=== PATIENT | female | born 1945 | race American Indian/Alaskan Native ===

== ENCOUNTER 2017-04-20 11:24 | Emergency (ER) | payer MEDICARE ==
[2017-04-20 12:46] LABS: Basophils % (Auto) 0.7 % (0.0-1.8); Eosinophils % (Auto) 3.6 % (0.0-4.3); Hematocrit 36.8 % (30.3-42.9); Hemoglobin 12.1 gm/dl (10.1-14.3); Mean Corpuscular HGB Conc 33 % (30-34); Mean Corpuscular Hemoglobin 30 pg (28-32); Mean Corpuscular Volume 90 fl (79-97); Platelet Count 257 K/mm3 (140-440); Red Blood Count 4.07 M/mm3 (3.65-5.03); Red Cell Distribution Width 14.9 % (13.2-15.2); White Blood Count 8.1 K/mm3 (4.5-11.0)
[2017-04-20 12:57] LABS: Anion Gap 15 mmol/L; BUN/Creatinine Ratio 15; Blood Urea Nitrogen 15 mg/dL (7-17); Calcium 8.7 mg/dL (8.4-10.2); Carbon Dioxide 25 mmol/L (22-30); Chloride 106.8 mmol/L (98-107); Glucose 87 mg/dL (65-100); Potassium 4.1 mmol/L (3.6-5.0); Sodium 143 mmol/L (137-145)
--- NOTE | 2017-04-20 13:41 | Emergency Department Report ---
ED General Adult HPI - General Chief complaint: Extremity Injury, Lower Stated complaint: POSSIBLE INFECTION Time Seen by Provider: 04/20/17 13:38 Source: patient Mode of arrival: Ambulatory Limitations: No Limitations - History of Present Illness Initial comments: Patient complains of generalized weakness. She denies dysuria but states that she has had this urinary frequency. This seems to be somewhat chronic. She denies fever or chills. She denies any respiratory symptoms or GI change. Does not have any other acute symptoms. She denies any sore pain whatsoever. -: Gradual Radiation: non-radiation Consistency: intermittent (weakness) Improves with: none Worsens with: none Associated Symptoms: denies other symptoms - Related Data Allergies Allergy/AdvReac Type Severity Reaction Status Date / Time Sulfa (Sulfonamide AdvReac Unknown Verified 04/20/17 12:00 Antibiotics) ED Review of Systems ROS: Stated complaint: POSSIBLE INFECTION Other details as noted in HPI Constitutional: weakness. denies: chills, fever Eyes: denies: eye pain, eye discharge, vision change ENT: denies: ear pain, throat pain Respiratory: denies: cough, shortness of breath, wheezing Cardiovascular: denies: chest pain, palpitations Endocrine: no symptoms reported Gastrointestinal: denies: abdominal pain, nausea, diarrhea Genitourinary: denies: urgency, dysuria, discharge Musculoskeletal: denies: back pain, joint swelling, arthralgia Skin: denies: rash, lesions Neurological: denies: headache, weakness, paresthesias Psychiatric: denies: anxiety, depression Hematological/Lymphatic: denies: easy bleeding, easy bruising ED Past Medical Hx - Past Medical History Previous Medical History?: Yes Hx Hypertension: Yes Hx CVA: Yes Hx Asthma: Yes - Surgical History Past Surgical History?: Yes Hx Cholecystectomy: Yes Additional Surgical History: hernia, hysterctomy - Social History Smoking Status: Never Smoker Substance Use Type: None ED Physical Exam - General Limitations: No Limitations General appearance: alert, in no apparent distress - Head Head exam: Present: atraumatic, normocephalic - Eye Eye exam: Present: normal appearance, PERRL, EOMI. Absent: scleral icterus - ENT ENT exam: Present: normal exam, mucous membranes moist - Neck Neck exam: Present: normal inspection. Absent: tenderness, meningismus - Respiratory Respiratory exam: Present: normal lung sounds bilaterally. Absent: respiratory distress - Cardiovascular Cardiovascular Exam: Present: normal rhythm, bradycardia. Absent: systolic murmur, diastolic murmur, rubs, gallop - GI/Abdominal GI/Abdominal exam: Present: soft, normal bowel sounds. Absent: distended, tenderness, guarding, rebound, rigid - Extremities Exam Extremities exam: Present: normal inspection - Back Exam Back exam: Present: normal inspection - Neurological Exam Neurological exam: Present: alert, oriented X3, CN II-XII intact. Absent: motor sensory deficit - Psychiatric Psychiatric exam: Present: normal affect, normal mood - Skin Skin exam: Present: warm, dry, intact, normal color. Absent: rash ED Course Vital Signs 04/20/17 11:52 Temperature 98.6 F Pulse Rate 61 Respiratory 16 Rate Blood Pressure 151/76 O2 Sat by Pulse 96 Oximetry - Reevaluation(s) Reevaluation #1: 04/20/17 16:01 Patient is clinically quite stable. I don't think she requires any further medical screening at this time. I'll refer her to her primary care doctor for further workup perhaps thyroid tests etc. She is discharged in stable condition. ED Medical Decision Making - Lab Data Result diagrams: 04/20/17 12:14 04/20/17 12:14 Laboratory Results - last 24 hr 04/20/17 04/20/17 12:14 12:14 WBC 8.1 RBC 4.07 Hgb 12.1 Hct 36.8 MCV 90 MCH 30 MCHC 33 RDW 14.9 Plt Count 257 Lymph % (Auto) 22.4 [place] % (Auto) 9.3 H Eos % (Auto) 3.6 Baso % (Auto) 0.7 Lymph # 1.8 [place] # 0.8 Eos # 0.3 Baso # 0.1 Seg Neutrophils % 64.0 Seg Neutrophils # 5.2 Sodium 143 Potassium 4.1 Chloride 106.8 Carbon Dioxide 25 Anion Gap 15 BUN 15 Creatinine 1.0 Estimated GFR > 60 BUN/Creatinine Ratio 15 Glucose 87 Calcium 8.7 Critical care attestation.: If time is entered above; I have spent that time in minutes in the direct care of this critically ill patient, excluding procedure time. ED Disposition Clinical Impression: Weakness, Sinus bradycardia Disposition: - TO HOME OR SELFCARE Is pt being admited?: No Does the pt Need Aspirin: No Condition: Stable Additional Instructions: Follow-up primary care physician. Perhaps he may want to send thyroid tests. Follow-up with your regular customer specialist. Return any acute change or worsening symptoms. Referrals: PRIMARY CARE,MD [Primary Care Provider] - 2-3 Days usual, customer specialist [Other] - 3-5 Days Time of Disposition: 16:02
[2017-04-20 14:56] LABS: Bilirubin,Urine NEG (Negative); Blood,Urine NEG (Negative); Ketones,Urine NEG (Negative); Leukocyte Esterase,Urine NEG (Negative); Mucus,Urine FEW /HPF; Nitrite,Urine NEG (Negative); Protein,Urine <15 mg/dL mg/dL (Negative)
[2017-04-20 16:22] VITALS: BP 169/71
== END 2017-04-20 16:21 | disposition home or self-care (01) ==
LOC: ED 11:24
DX: R53.1 Weakness (principal); R00.1 Bradycardia, unspecified; Z86.73 Personal history of transient ischemic attack (TIA), and cerebral infarction without residual deficits; I10 Essential (primary) hypertension; J45.909 Unspecified asthma, uncomplicated; Z88.2 Allergy status to sulfonamides
CPT/HCPCS: 36415; 80048; 81001; 85025; 93005; 93010

== ENCOUNTER 2018-05-04 15:12 | Outpatient (CLI) | payer MEDICARE ==
--- NOTE | 2018-05-05 10:51 | Mammography Report ---
BILATERAL DIGITAL SCREENING MAMMOGRAM with CAD: 05/04/18 15:12:00 CLINICAL: Routine screening.No previous mammogram. FINDINGS: The breasts are almost entirely fatty.Bilateral surgical clips. A small right retroareolar oil cyst with calcifications. Benign fat necrosis of the left breast with multiple calcified oil cysts and retraction of the left nipple by surgical scar. No mass, suspicious architectural distortion or suspicious calcifications. IMPRESSION: No mammographic evidence of malignancy. BI-RADS CATEGORY: 2 -- Benign RECOMMENDATION: Routine mammographic screening in one year. COMMENT: Patient follow-up letters are generated by our [employer] application.
== END 2018-05-04 15:13 | disposition home or self-care (01) ==
LOC: SPVWC 15:12
PROVIDERS: ATTEND Family Medicine
DX: Z12.31 Encounter for screening mammogram for malignant neoplasm of breast (principal); I10 Essential (primary) hypertension; J45.909 Unspecified asthma, uncomplicated; Z90.49 Acquired absence of other specified parts of digestive tract; Z90.710 Acquired absence of both cervix and uterus
CPT/HCPCS: 77067

== ENCOUNTER 2019-08-14 10:31 | Emergency (ER) | payer MEDICARE ==
[2019-08-14] MEDS ORDERED: LISINOPRIL 10 MG TAB PO ONE (11:19)
[2019-08-14] MEDS ORDERED: amLODIPine 5 MG TAB PO ONE (11:19)
--- NOTE | 2019-08-14 11:24 | Emergency Department Report ---
Chief Complaint: Arrhythmia/Palpitations Stated Complaint: HEART RACING Time Seen by Provider: 08/14/19 11:17 - HPI History of Present Illness: 74 female htn depressiob intermittent palp, heavy breathing x 1 month. no cp now more frequent and reoccured this am while at rest intemittient hand tremors/shaking last several days takes lotrel, lexapro but did not take meds this am due to symptoms returned form [place] 5 days ago ekg nsr 78 - Exam Vital Signs: Vital Signs 08/14/19 10:32 Temperature 99.0 F Pulse Rate 89 Respiratory 20 Rate Blood Pressure 200/107 O2 Sat by Pulse 97 Oximetry Physical Exam: ctab rrr no calf tenderness, swelling MSE screening note: Focused history and physical exam performed. Due to findings the following was ordered: labs her home bp med equivalent provided cxr ekg ED Disposition for MSE Condition: Stable
--- NOTE | 2019-08-14 12:22 | XRay Report ---
Chest 2 views INDICATION: Chest pain IMPRESSION: Low lung volumes. Heart size is borderline enlarged. The lungs are clear. Signer Name: Sami Long MD Signed: 08/14/2019 12:17 PM Workstation Name: [id number]
--- NOTE | 2019-08-14 12:41 | Emergency Department Report ---
HPI - General Chief Complaint: Arrhythmia/Palpitations Time Seen by Provider: 08/14/19 11:17 - HPI HPI: Room 5 The patient is a 74-year-old female presenting with a chief complaint of palpitations and increased work of breathing. Patient states for one week she's noticed her heart rate has increased intermittently. Patient states family members noticed that she's had increased work of breathing intermittently as well for one week but the patient herself did not notice it until this morning. The patient states this morning when she awakened she had an elevated heart rate and increased work of breathing. Patient states she's felt occasional shortness of breath for one week intermittently but denies chest pain nausea or vomiting. The patient states she flew to [place] 1 week ago returned 5 days ago. The patient states she felt as though her heart was racing at the time her EKG was performed today (normal sinus rhythm at 78 bpm). Location: [See above] Duration: [See above] Quality: [See above] Severity: [See above] Timing: [See above] Context: [See above] Modifying factors: [See above] Associated signs and symptoms: [see above] ED Past Medical Hx - Past Medical History Previous Medical History?: Yes Hx Hypertension: Yes Hx CVA: Yes Hx Asthma: Yes - Surgical History Past Surgical History?: Yes Hx Cholecystectomy: Yes Additional Surgical History: hernia, hysterctomy - Family History Family history: no significant - Social History Smoking Status: Never Smoker Substance Use Type: Prescribed - Medications Home Medications: Home Medications Medication Instructions Recorded Confirmed Last Taken Type Clindamycin [Clindamycin CAP] 150 mg PO Q8HR #20 capsule 04/20/17 Unknown Rx atenoloL [Tenormin] 25 mg PO DAILY #30 tab 04/20/17 Unknown Rx traMADoL [Ultram] 50 mg PO Q6HR PRN #10 tablet 04/20/17 Unknown Rx hydrOXYzine PAMOATE [Vistaril] 25 mg PO Q6HR PRN #10 capsule 08/14/19 Unknown Rx ED Review of Systems ROS: Stated complaint: HEART RACING Other details as noted in HPI Constitutional: denies: diaphoresis Eyes: denies: eye pain ENT: denies: throat pain Respiratory: shortness of breath Cardiovascular: palpitations. denies: chest pain Endocrine: no symptoms reported Gastrointestinal: denies: abdominal pain Genitourinary: denies: dysuria Musculoskeletal: denies: back pain Neurological: denies: headache Physical Exam - Physical Exam Vital Signs: Vital Signs 08/14/19 08/14/19 08/14/19 10:32 11:40 12:00 Temperature 99.0 F Pulse Rate 89 89 Respiratory 20 Rate Blood Pressure 200/107 200/107 O2 Sat by Pulse 97 98 Oximetry 08/14/19 08/14/19 12:10 12:15 Temperature Pulse Rate 87 67 Respiratory 9 L Rate Blood Pressure 188/86 O2 Sat by Pulse 99 Oximetry Physical Exam: GENERAL: The patient is well-developed well-nourished female lying on stretcher not appearing to be in acute distress. [] HEENT: Normocephalic. Atraumatic. Extraocular motions are intact. Patient has moist mucous membranes. NECK: Supple. Trachea midline CHEST/LUNGS: Clear to auscultation. There is no respiratory distress noted. HEART/CARDIOVASCULAR: Regular. There is no tachycardia. There is no gallop rub or murmur. ABDOMEN: Abdomen is soft, nontender. Patient has normal bowel sounds. There is no abdominal distention. SKIN: There is no rash. There is no edema. There is no diaphoresis. NEURO: The patient is awake, alert, and oriented. The patient is cooperative. The patient has no focal neurologic deficits. The patient has normal speech. Cranial nerves II through XII grossly intact, motor MUSCULOSKELETAL: There is no evidence of acute injury. ED Course Vital Signs 08/14/19 08/14/19 08/14/19 10:32 11:40 12:00 Temperature 99.0 F Pulse Rate 89 89 Respiratory 20 Rate Blood Pressure 200/107 200/107 O2 Sat by Pulse 97 98 Oximetry 08/14/19 08/14/19 12:10 12:15 Temperature Pulse Rate 87 67 Respiratory 9 L Rate Blood Pressure 188/86 O2 Sat by Pulse 99 Oximetry ED Medical Decision Making - Lab Data Result diagrams: 08/14/19 12:25 08/14/19 12:25 Laboratory Tests 08/14/19 08/14/19 08/14/19 12:25 12:25 12:25 WBC 10.4 RBC 4.22 Hgb 12.1 Hct 37.3 MCV 89 MCH 29 MCHC 33 RDW 15.9 H Plt Count 303 Lymph % (Auto) 16.7 [place] % (Auto) 7.4 H Eos % (Auto) 3.0 Baso % (Auto) 1.2 Lymph # 1.7 [place] # 0.8 Eos # 0.3 Baso # 0.1 Seg Neutrophils % 71.7 H Seg Neutrophils # 7.4 D-Dimer 662.15 H Sodium 138 Potassium 3.7 Chloride 102.7 Carbon Dioxide 21 L Anion Gap 18 BUN 11 Creatinine 0.8 Estimated GFR > 60 BUN/Creatinine Ratio 14 Glucose 92 Calcium 8.9 Magnesium Troponin T < 0.010 TSH Free T4 Urine Opiates Screen Urine Methadone Screen Ur Barbiturates Screen Ur Phencyclidine Scrn Ur Amphetamines Screen U Benzodiazepines Scrn Urine Cocaine Screen U Marijuana (THC) Screen Drugs of Abuse Note 08/14/19 08/14/19 08/14/19 12:25 12:25 12:32 WBC RBC Hgb Hct MCV MCH MCHC RDW Plt Count Lymph % (Auto) [place] % (Auto) Eos % (Auto) Baso % (Auto) Lymph # [place] # Eos # Baso # Seg Neutrophils % Seg Neutrophils # D-Dimer Sodium Potassium Chloride Carbon Dioxide Anion Gap BUN Creatinine Estimated GFR BUN/Creatinine Ratio Glucose Calcium Magnesium 2.30 Troponin T TSH 3.510 Free T4 1.10 Urine Opiates Screen Presumptive negative Urine Methadone Screen Presumptive negative Ur Barbiturates Screen Presumptive negative Ur Phencyclidine Scrn Presumptive negative Ur Amphetamines Screen Presumptive negative U Benzodiazepines Scrn Presumptive negative Urine Cocaine Screen Presumptive negative U Marijuana (THC) Screen Presumptive negative Drugs of Abuse Note Disclamer - Radiology Data Radiology results: report reviewed (CT chest), image reviewed (CT chest) [facility] [address] [place] [address] Cat Scan Report Signed Patient: CHICA CABRERA MR#: [id number] : 1945 Acct:[id number] Age/Sex: 74 / F ADM Date: 08/14/19 Loc: ED Attending Dr: Ordering Physician: APRIL MURRAY MD Date of Service: 08/14/19 Procedure(s): CT angio chest Accession Number(s): [id number] cc: APRIL MURRAY MD CTA CHEST WITH IV CONTRAST INDICATION / CLINICAL INFORMATION: shortness of breath, palpitations, elevated d-dime. TECHNIQUE: Axial CT images were obtained through the chest after injection of 100 MLO Omnipaque 350 IV contrast. 3 plane MIP and/or 3D rec onstructions were produced. All CT scans at this location are performed using CT dose reduction for ALARA by means of automated exposure control. COMPARISON: Same-day chest radiograph FINDINGS: PULMONARY ARTERIES: No pulmonary emboli. THORACIC AORTA: No significant abnormality. HEART: No significant abnormality. PLEURA: No pleural effusion. No pneumothorax. LYMPH NODES: No adenopathy. LUNGS: No acute air space or interstitial disease. Scattered small subpleural/fissural nodules are present in both lungs, the largest in the middle lobe on series 2 image 57 measuring 7 mm in greatest dimension. ADDITIONAL FINDINGS: None. UPPER ABDOMEN: No acute findings. SKELETAL STRUCTURES: No significant osseous abnormality. IMPRESSION: 1. No CT evidence for pulmonary embolism. 2. No acute findings. 3. Scattered small subpleural and fissural nodules in both lungs, none greater than 6 mm in average dimension. See recommendation below. INCIDENTAL PULMONARY NODULE RECOMMENDATION Recommendation: Solid Nodule size <6 mm -- Single or Multiple - Low Risk Patient: No routine follow-up - High Risk Patient: Optional CT at 12 months Note These recommendations do not apply to lung cancer screening, patients with immunosuppression, or patients with known primary cancer. Note Newly detected indeterminate nodule in persons 35 years of age or older. Persons under the age of 35 should not receive follow-up unless there is a known primary cancer. Low Risk Patient -- minimal or absent history of smoking and of other known risk factors. High Risk Patient -- history of smoking or of other known risk factors. Nodule dimensions are average of long and short axes, rounded to the nearest millimeter. Based on 2017 Fleischner Society Guidelines found in Radiology 2017 284:228-243. [email or web address] Signer Name: Marcello Martínez MD Signed: 08/14/2019 2:25 PM Workstation Name: [id number] Transcribed By: VIKA Dictated By: Marcello Martínez MD Electronically Authenticated By: Marcello Martínez MD Signed Date/Time: 08/14/19 1425 DD/ 1419 TD/TT: - Differential Diagnosis palpitations, dysrhythmia, PE, anxiety, hyperthyroidism Critical care attestation.: If time is entered above; I have spent that time in minutes in the direct care of this critically ill patient, excluding procedure time. ED Disposition Clinical Impression: Palpitations, Pulmonary nodules Disposition: TO HOME OR SELFCARE Is pt being admited?: No Does the pt Need Aspirin: No Condition: Stable Instructions: Palpitations (ED), Pulmonary Nodules (ED) Additional Instructions: Return to the emergency department should you develop worsening symptoms, inability to tolerate food or liquids, high fever or any other concerns Prescriptions: hydrOXYzine PAMOATE [Vistaril] 25 mg PO Q6HR PRN #10 capsule PRN Reason: Anxiety Referrals: ARIANE ROBLES MD [Primary Care Provider] - 3-5 Days ARNEL GALEANO MD [Staff Physician] - [facility] (Dr. Galeano is a swamper. Please follow up with him for further evaluation of your palpitations) MARCO BARAJAS MD [Staff Physician] - 3-5 Days (Dr Barajas is a neonatal critical care nurse. Please follow-up with him for further evaluation of your pulmona ry nodules) Time of Disposition: 14:55
[2019-08-14 12:52] LABS: Basophils # (Auto) 0.1 K/mm3 (0.0-0.1); Basophils % (Auto) 1.2 % (0.0-1.8); Eosinophils # (Auto) 0.3 K/mm3 (0.0-0.4); Hematocrit 37.3 % (30.3-42.9); Hemoglobin 12.1 gm/dl (10.1-14.3); Lymphocytes # (Auto) 1.7 K/mm3 (1.2-5.4); Lymphocytes % (Auto) 16.7 % (13.4-35.0); Mean Corpuscular HGB Conc 33 % (30-34); Mean Corpuscular Volume 89 fl (79-97); Monocytes # (Auto) 0.8 K/mm3 (0.0-0.8); Monocytes % (Auto) 7.4 % (0.0-7.3); Platelet Count 303 K/mm3 (140-440); Red Blood Count 4.22 M/mm3 (3.65-5.03); Red Cell Distribution Width 15.9 % (13.2-15.2)
[2019-08-14 13:06] LABS: BUN/Creatinine Ratio 14; Blood Urea Nitrogen 11 mg/dL (7-17); Calcium 8.9 mg/dL (8.4-10.2); Hemolysis Index 58
[2019-08-14 13:17] LABS: Free T4 (Free Thyroxine) 1.1 ng/dL (0.76-1.46)
[2019-08-14 13:32] LABS: Amphetamine Screen,Urine PRESUMPTIVE NEGATIVE; Benzodiazepines Screen,Urine PRESUMPTIVE NEGATIVE; Cannabinoid Screen,Urine PRESUMPTIVE NEGATIVE; Cocaine Screen,Urine PRESUMPTIVE NEGATIVE; Methadone Screen,Urine PRESUMPTIVE NEGATIVE; Opiate Screen,Urine PRESUMPTIVE NEGATIVE
--- NOTE | 2019-08-14 14:30 | Cat Scan Report ---
CTA CHEST WITH IV CONTRAST INDICATION / CLINICAL INFORMATION: shortness of breath, palpitations, elevated d-dime. TECHNIQUE: Axial CT images were obtained through the chest after injection of 100 MLO Omnipaque 350 IV contrast. 3 plane MIP and/or 3D reconstructions were produced. All CT scans at this location are performed usi ng CT dose reduction for ALARA by means of automated exposure control. COMPARISON: Same-day chest radiograph FINDINGS: PULMONARY ARTERIES: No pulmonary emboli. THORACIC AORTA: No significant abnormality. HEART: No significant abnormality. PLEURA: No pleural effusion. No pneumothorax. LYMPH NODES: No adenopathy. LUNGS: No acute air space or interstitial disease. Scattered small subpleural/fissural nodules are pr esent in both lungs, the largest in the middle lobe on series 2 image 57 measuring 7 mm in greatest d imension. ADDITIONAL FINDINGS: None. UPPER ABDOMEN: No acute findings. SKELETAL STRUCTURES: No significant osseous abnormality. IMPRESSION: 1. No CT evidence for pulmonary embolism. 2. No acute findings. 3. Scattered small subpleural and fissural nodules in both lungs, none greater than 6 mm in average dimension. See recommendation below. INCIDENTAL PULMONARY NODULE RECOMMENDATION Recommendation: Solid Nodule size <6 mm -- Single or Multiple - Low Risk Patient: No routine follow-up - High Risk Patient: Optional CT at 12 months Note These recommendations do not apply to lung cancer screening, patients with immunosuppression, o r patients with known primary cancer. Note Newly detected indeterminate nodule in persons 35 years of age or older. Persons under the age of 35 should not receive follow-up unless there is a known primary cancer. Low Risk Patient -- minimal or absent history of smoking and of other known risk factors. High Risk Patient -- history of smoking or of other known risk factors. Nodule dimensions are average of long and short axes, rounded to the nearest millimeter. Based on 2017 Fleischner Society Guidelines found in Radiology 2017 284:228-243. [email or web address] Signer Name: Marcello Martínez MD Signed: 08/14/2019 2:25 PM Workstation Name: [id number]
[2019-08-14 15:39] VITALS: BP 152/70
== END 2019-08-14 15:38 | disposition home or self-care (01) ==
LOC: ED 10:31
DX: R00.2 Palpitations (principal); R91.1 Solitary pulmonary nodule; I10 Essential (primary) hypertension; Z86.73 Personal history of transient ischemic attack (TIA), and cerebral infarction without residual deficits; J45.909 Unspecified asthma, uncomplicated; Z90.49 Acquired absence of other specified parts of digestive tract; Z90.710 Acquired absence of both cervix and uterus; Z79.899 Other long term (current) drug therapy; Z88.2 Allergy status to sulfonamides
CPT/HCPCS: 36415; 71046; 71275; 80048; 80307; 83735; 84439; 84443; 84484; 85025; 85379; 93005; 93010; 99285; Q9967

== ENCOUNTER 2020-11-10 12:30 | Emergency (ER) | payer MEDICARE ==
[2020-11-10 13:17] VITALS: BP 177/90
--- NOTE | 2020-11-10 13:23 | Event Note ---
ED Screening Note Date of service: 11/10/20 Time: 13:22 ED Screening Note: Patient complains of sudden onset of black tarry stools and loss of bowel control starting yesterday No loss of bladder control Denies abdominal pain or history of abdominal surgeries No back pain per patient Past medical history includes hypertension Patient admits to feeling lightheaded and off-balance No history of cancer This initial assessment/diagnostic orders/clinical plan/treatment(s) is/are subject to change based on patients health status, clinical progression and re- assessment by fellow clinical providers in the ED. Further treatment and workup at subsequent clinical providers discretion. Patient/guardian urged not to elope from the ED as their condition may be serious if not clinically assessed and managed. Initial orders include: Labs EKG
--- NOTE | 2020-11-10 14:04 | Electrocardiograph Report ---
[facility] Test Date: 2020-11-10 Test Time: 13:23:37 Pat Name: CHICA CABRERA Department: Room: Gender: F Technology Infusion Specialist: ADDI : 1945 Requested By: ANUPAM MORALES Order Number: [id number] Reading MD: Rayray Gamez Measurements Intervals [place] Rate: 73 P: 67 MS: 141 QRS: 60 QRSD: 81 T: 18 QT: 372 QTc: 410 Interpretive Statements Sinus rhythm No previous ECG available for comparison Electronically Signed On 11-10-2020 14:04:08 EDT by Rayray Gamez
[2020-11-10 14:07] LABS: Basophils % (Auto) 0.3 % (0.0-1.8); Eosinophils # (Auto) 0.3 K/mm3 (0.0-0.4); Eosinophils % (Auto) 4.6 % (0.0-4.3); Hematocrit 37.6 % (30.3-42.9); Hemoglobin 12.1 gm/dl (10.1-14.3); Lymphocytes # (Auto) 1.6 K/mm3 (1.2-5.4); Lymphocytes % (Auto) 25.3 % (13.4-35.0); Mean Corpuscular HGB Conc 32 % (30-34); Mean Corpuscular Volume 90 fl (79-97); Monocytes # (Auto) 0.7 K/mm3 (0.0-0.8); Monocytes % (Auto) 11.4 % (0.0-7.3); Platelet Count 240 K/mm3 (140-440); Red Blood Count 4.17 M/mm3 (3.65-5.03); Red Cell Distribution Width 15.2 % (13.2-15.2)
[2020-11-10 14:14] LABS: INR 1.08 (0.87-1.13)
[2020-11-10 14:15] LABS: Partial Thromboplastin Time 27.7 Sec. (24.2-36.6)
[2020-11-10 14:29] LABS: Alanine Aminotransferase 18 units/L (7-56); Albumin 3.5 g/dL (3.9-5); BUN/Creatinine Ratio 17; Blood Urea Nitrogen 20 mg/dL (7-17); Calcium 8.6 mg/dL (8.4-10.2); Hemolysis Index 4
== END 2020-11-10 20:00 | disposition left against medical advice (07) ==
LOC: ED 12:30
DX: R19.7 Diarrhea, unspecified (principal); R42 Dizziness and giddiness; Z53.21 Procedure and treatment not carried out due to patient leaving prior to being seen by health care provider
CPT/HCPCS: 36415; 80053; 83690; 84484; 85025; 85610; 85730; 93005